=== PATIENT | male | born 1965 | race Caucasian/White ===

== ENCOUNTER 2018-09-06 21:00 | Inpatient (IN) ==
[2018-09-06] MEDS ORDERED: Succinylcholine Inj 200 MG/10 ML Vial ONE (21:14)
[2018-09-06] MEDS ORDERED: Etomidate Inj 40 MG/20 ML Vial IV.PUSH ONE (21:14)
[2018-09-06] MEDS ORDERED: Succinylcholine Inj 100 MG/5 ML Syringe IV.PUSH ONE (21:15)
[2018-09-06] MEDS ORDERED: Etomidate Inj 20 MG/10 ML Ampul IV.PUSH ONE (21:15)
[2018-09-06] MEDS ORDERED: Propofol 1000 mg/100 ml Inj 1,000 MG/100 ML BOTTLE IV.CONT PRN (21:15)
[2018-09-06] MEDS: Sod Chloride 0.9% Inj 1,000 ML IV.CONT SCH (21:19)
[2018-09-06] MEDS ORDERED: Midazolam 100 MG/100 ML Inj 100 MG/100 ML BAG IV.CONT PRN (21:26)
[2018-09-06] MEDS ORDERED: Propofol Inj 500 MG/50 ML Vial ONE (21:31)
[2018-09-06] MEDS ORDERED: Midazolam 100 MG/100 ML Inj 100 MG/100 ML BAG IV.CONT ONE (21:37)
--- NOTE | 2018-09-06 21:38 | ED ---
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 pH (7.320-7.420) ABG pCO2 (38-42) mmHg ABG pO2 (60-120) mmHg ABG HCO3 (22-26) mmol/L ABG O2 Content (12.0-20.0) Vol % ABG Base Excess (-2-2) mmol/L ABG Methemoglobin (0-2) % Husam Test Hemoglobin (12.0-16.0) G/DL Carboxyhemoglobin (0-4) % O2 Delivery Device Vent Setting Inspired O2 % Critical Value Sodium (136-145) meq/L Potassium (3.5-5.1) meq/L Chloride (98-107) meq/L Carbon Dioxide (21.0-32.0) meq/L Anion Gap (5-15) meq/L BUN (7-18) mg/dL Creatinine (0.60-1.30) mg/dL Estimated GFR (>89) mL/min POC Glucose 132 H (68-110) mg/dl Random Glucose (74-106) mg/dL Lactic Acid (0.4-2.0) mmol/L Calcium (8.5-10.1) mg/dL Magnesium (1.5-2.5) mg/dL Total Bilirubin (0.2-1.0) mg/dL AST (15-37) U/L ALT (12-78) U/L Alkaline Phosphatase (45-117) U/L Total Creatine Kinase (39-308) U/L Troponin I (0.02-0.05) ng/mL Total Protein (6.4-8.2) g/dL Albumin (3.4-5.0) g/dL Thiamine (70-180) nmol/L Vitamin B12 (193-986) pg/mL TSH (0.358-3.740) uIU/mL Free T4 (0.76-1.46) ng/dL Prolactin 18.3 H (4.0 - 15.2) ng/mL Urine Color (Yellw/Straw) Urine Clarity (Clear) Urine pH (5.0-8.5) Ur Specific [place] (1.002-1.035) Urine Protein (Neg-Trace) mg/dL Urine Glucose (UA) (Negative) mg/dL Urine Ketones (Negative) mg/dL Urine Occult Blood (Negative) Urine Nitrate (Negative) Urine Bilirubin (Negative) Urine Urobilinogen (Less than 2) mg/dL Ur Leukocyte Esterase (Negative) Urine RBC (0-3) /hpf Urine WBC (0-5) /hpf Ur Squamous Epith Cells (0-5) /hpf Hyaline Casts (0-3) /lpf Urine Mucus (Occasional) /lpf Micro UA Comment Ur Microscopic Review Urine Culture Comments Nasal Screen MRSA (PCR) Not detected (Negative) Vancomycin Trough (5.0-10.0) mcg/mL Random Vancomycin Comment Salicylates (2.8-20.0) mg/dL Urine Opiates Screen (Neg) Acetaminophen (10.0-30.0) mcg/mL Ur Barbiturates Screen (Neg) Phenytoin (10.0-20.0) mcg/mL Levetiracetam (12.0 - 46.0) mcg/mL Ur Amphetamines Screen (Neg) Phenobarbital (15.0-40.0) mcg/mL U Benzodiazepines Scrn (Neg) Urine Cocaine Screen (Neg) U Cannabinoids Screen (Neg) Serum Alcohol (0-5) mg/dL CARLOS Screen (Neg) RPR (Nonreactive) 09/08/18 09/09/18 09/09/18 Range/Units 21:34 03:05 10:17 WBC (4.0-11.0) th/mm3 RBC (4.50-5.90) mil/mm3 Hgb (13.0-17.0) gm/dL Hct (39.0-51.0) % MCV (80.0-100.0) fL MCH (27.0-34.0) pg MCHC (32.0-36.0) % RDW (11.6-17.2) % Plt Count (150-450) th/mm3 MPV (7.0-11.0) fL Neut % (Auto) (16.0-70.0) % Lymph % (Auto) (9.0-44.0) % [place] % (Auto) (0.0-8.0) % Eos % (Auto) (0.0-4.0) % Baso % (Auto) (0.0-2.0) % Neut # (Auto) (1.8-7.7) th/mm3 Lymph # (Auto) (1.0-4.8) th/mm3 [place] # (Auto) (0.0-0.9) th/mm3 Eos # (Auto) (0.0-0.4) th/mm3 Baso # (Auto) (0.0-0.2) th/mm3 WBC Differential Differential Comment PT (9.8-11.6) sec INR Ratio APTT (23.4-31.7) sec Puncture Site Patient Temperature O2 Saturation (90-100) % ABG pH (7.320-7.420) ABG pCO2 (38-42) mmHg ABG pO2 (60-120) mmHg ABG HCO3 (22-26) mmol/L ABG O2 Content (12.0-20.0) Vol % ABG Base Excess (-2-2) mmol/L ABG Methemoglobin (0-2) % Husam Test Hemoglobin (12.0-16.0) G/DL Carboxyhemoglobin (0-4) % O2 Delivery Device Vent Setting Inspired O2 % Critical Value Sodium (136-145) meq/L Potassium (3.5-5.1) meq/L Chloride (98-107) meq/L Carbon Dioxide (21.0-32.0) meq/L Anion Gap (5-15) meq/L BUN (7-18) mg/dL Creatinine 0.55 L (0.60-1.30) mg/dL Estimated GFR Greater than 89 (>89) mL/min POC Glucose 89 (68-110) mg/dl Random Glucose (74-106) mg/dL Lactic Acid (0.4-2.0) mmol/L Calcium (8.5-10.1) mg/dL Magnesium (1.5-2.5) mg/dL Total Bilirubin (0.2-1.0) mg/dL AST (15-37) U/L ALT (12-78) U/L Alkaline Phosphatase (45-117) U/L Total Creatine Kinase (39-308) U/L Troponin I (0.02-0.05) ng/mL Total Protein (6.4-8.2) g/dL Albumin (3.4-5.0) g/dL Thiamine (70-180) nmol/L Vitamin B12 (193-986) pg/mL TSH (0.358-3.740) uIU/mL Free T4 (0.76-1.46) ng/dL Prolactin (4.0 - 15.2) ng/mL Urine Color (Yellw/Straw) Urine Clarity (Clear) Urine pH (5.0-8.5) Ur Specific [place] (1.002-1.035) Urine Protein (Neg-Trace) mg/dL Urine Glucose (UA) (Negative) mg/dL Urine Ketones (Negative) mg/dL Urine Occult Blood (Negative) Urine Nitrate (Negative) Urine Bilirubin (Negative) Urine Urobilinogen (Less than 2) mg/dL Ur Leukocyte Esterase (Negative) Urine RBC (0-3) /hpf Urine WBC (0-5) /hpf Ur Squamous Epith Cells (0-5) /hpf Hyaline Casts (0-3) /lpf Urine Mucus (Occasional) /lpf Micro UA Comment Ur Microscopic Review Urine Culture Comments Nasal Screen MRSA (PCR) (Negative) Vancomycin Trough (5.0-10.0) mcg/mL Random Vancomycin Comment Salicylates (2.8-20.0) mg/dL Urine Opiates Screen (Neg) Acetaminophen (10.0-30.0) mcg/mL Ur Barbiturates Screen (Neg) Phenytoin (10.0-20.0) mcg/mL Levetiracetam (12.0 - 46.0) mcg/mL Ur Amphetamines Screen (Neg) Phenobarbital 8.7 L (15.0-40.0) mcg/mL U Benzodiazepines Scrn (Neg) Urine Cocaine Screen (Neg) U Cannabinoids Screen (Neg) Serum Alcohol (0-5) mg/dL CARLOS Screen (Neg) RPR (Nonreactive) 09/09/18 09/09/18 09/09/18 Range/Units 11:35 11:44 11:44 WBC (4.0-11.0) th/mm3 RBC (4.50-5.90) mil/mm3 Hgb (13.0-17.0) gm/dL Hct (39.0-51.0) % MCV (80.0-100.0) fL MCH (27.0-34.0) pg MCHC (32.0-36.0) % RDW (11.6-17.2) % Plt Count (150-450) th/mm3 MPV (7.0-11.0) fL Neut % (Auto) (16.0-70.0) % Lymph % (Auto) (9.0-44.0) % [place] % (Auto) (0.0-8.0) % Eos % (Auto) (0.0-4.0) % Baso % (Auto) (0.0-2.0) % Neut # (Auto) (1.8-7.7) th/mm3 Lymph # (Auto) (1.0-4.8) th/mm3 [place] # (Auto) (0.0-0.9) th/mm3 Eos # (Auto) (0.0-0.4) th/mm3 Baso # (Auto) (0.0-0.2) th/mm3 WBC Differential Differential Comment PT (9.8-11.6) sec INR Ratio APTT (23.4-31.7) sec Puncture Site Patient Temperature O2 Saturation (90-100) % ABG pH (7.320-7.420) ABG pCO2 (38-42) mmHg ABG pO2 (60-120) mmHg ABG HCO3 (22-26) mmol/L ABG O2 Content (12.0-20.0) Vol % ABG Base Excess (-2-2) mmol/L ABG Methemoglobin (0-2) % Husam Test Hemoglobin (12.0-16.0) G/DL Carboxyhemoglobin (0-4) % O2 Delivery Device Vent Setting Inspired O2 % Critical Value Sodium (136-145) meq/L Potassium (3.5-5.1) meq/L Chloride (98-107) meq/L Carbon Dioxide (21.0-32.0) meq/L Anion Gap (5-15) meq/L BUN (7-18) mg/dL Creatinine (0.60-1.30) mg/dL Estimated GFR (>89) mL/min POC Glucose 86 (68-110) mg/dl Random Glucose (74-106) mg/dL Lactic Acid (0.4-2.0) mmol/L Calcium (8.5-10.1) mg/dL Magnesium (1.5-2.5) mg/dL Total Bilirubin (0.2-1.0) mg/dL AST (15-37) U/L ALT (12-78) U/L Alkaline Phosphatase (45-117) U/L Total Creatine Kinase (39-308) U/L Troponin I (0.02-0.05) ng/mL Total Protein (6.4-8.2) g/dL Albumin (3.4-5.0) g/dL Thiamine (70-180) nmol/L Vitamin B12 360 (193-986) pg/mL TSH 2.170 (0.358-3.740) uIU/mL Free T4 0.80 (0.76-1.46) ng/dL Prolactin (4.0 - 15.2) ng/mL Urine Color (Yellw/Straw) Urine Clarity (Clear) Urine pH (5.0-8.5) Ur Specific [place] (1.002-1.035) Urine Protein (Neg-Trace) mg/dL Urine Glucose (UA) (Negative) mg/dL Urine Ketones (Negative) mg/dL Urine Occult Blood (Negative) Urine Nitrate (Negative) Urine Bilirubin (Negative) Urine Urobilinogen (Less than 2) mg/dL Ur Leukocyte Esterase (Negative) Urine RBC (0-3) /hpf Urine WBC (0-5) /hpf Ur Squamous Epith Cells (0-5) /hpf Hyaline Casts (0-3) /lpf Urine Mucus (Occasional) /lpf Micro UA Comment Ur Microscopic Review Urine Culture Comments Nasal Screen MRSA (PCR) (Negative) Vancomycin Trough (5.0-10.0) mcg/mL Random Vancomycin Comment Salicylates (2.8-20.0) mg/dL Urine Opiates Screen (Neg) Acetaminophen (10.0-30.0) mcg/mL Ur Barbiturates Screen (Neg) Phenytoin (10.0-20.0) mcg/mL Levetiracetam 24.2 (12.0 - 46.0) mcg/mL Ur Amphetamines Screen (Neg) Phenobarbital (15.0-40.0) mcg/mL U Benzodiazepines Scrn (Neg) Urine Cocaine Screen (Neg) U Cannabinoids Screen (Neg) Serum Alcohol (0-5) mg/dL CARLOS Screen (Neg) RPR (Nonreactive) 09/09/18 09/09/18 09/09/18 Range/Units 11:44 11:44 15:57 WBC (4.0-11.0) th/mm3 RBC (4.50-5.90) mil/mm3 Hgb (13.0-17.0) gm/dL Hct (39.0-51.0) % MCV (80.0-100.0) fL MCH (27.0-34.0) pg MCHC (32.0-36.0) % RDW (11.6-17.2) % Plt Count (150-450) th/mm3 MPV (7.0-11.0) fL Neut % (Auto) (16.0-70.0) % Lymph % (Auto) (9.0-44.0) % [place] % (Auto) (0.0-8.0) % Eos % (Auto) (0.0-4.0) % Baso % (Auto) (0.0-2.0) % Neut # (Auto) (1.8-7.7) th/mm3 Lymph # (Auto) (1.0-4.8) th/mm3 [place] # (Auto) (0.0-0.9) th/mm3 Eos # (Auto) (0.0-0.4) th/mm3 Baso # (Auto) (0.0-0.2) th/mm3 WBC Differential Differential Comment PT (9.8-11.6) sec INR Ratio APTT (23.4-31.7) sec Puncture Site Patient Temperature O2 Saturation (90-100) % ABG pH (7.320-7.420) ABG pCO2 (38-42) mmHg ABG pO2 (60-120) mmHg ABG HCO3 (22-26) mmol/L ABG O2 Content (12.0-20.0) Vol % ABG Base Excess (-2-2) mmol/L ABG Methemoglobin (0-2) % Husam Test Hemoglobin (12.0-16.0) G/DL Carboxyhemoglobin (0-4) % O2 Delivery Device Vent Setting Inspired O2 % Critical Value Sodium (136-145) meq/L Potassium (3.5-5.1) meq/L Chloride (98-107) meq/L Carbon Dioxide (21.0-32.0) meq/L Anion Gap (5-15) meq/L BUN (7-18) mg/dL Creatinine (0.60-1.30) mg/dL Estimated GFR (>89) mL/min POC Glucose (68-110) mg/dl Random Glucose (74-106) mg/dL Lactic Acid (0.4-2.0) mmol/L Calcium (8.5-10.1) mg/dL Magnesium (1.5-2.5) mg/dL Total Bilirubin (0.2-1.0) mg/dL AST (15-37) U/L ALT (12-78) U/L Alkaline Phosphatase (45-117) U/L Total Creatine Kinase (39-308) U/L Troponin I (0.02-0.05) ng/mL Total Protein (6.4-8.2) g/dL Albumin (3.4-5.0) g/dL Thiamine 136 (70-180) nmol/L Vitamin B12 (193-986) pg/mL TSH (0.358-3.740) uIU/mL Free T4 (0.76-1.46) ng/dL Prolactin (4.0 - 15.2) ng/mL Urine Color (Yellw/Straw) Urine Clarity (Clear) Urine pH (5.0-8.5) Ur Specific [place] (1.002-1.035) Urine Protein (Neg-Trace) mg/dL Urine Glucose (UA) (Negative) mg/dL Urine Ketones (Negative) mg/dL Urine Occult Blood (Negative) Urine Nitrate (Negative) Urine Bilirubin (Negative) Urine Urobilinogen (Less than 2) mg/dL Ur Leukocyte Esterase (Negative) Urine RBC (0-3) /hpf Urine WBC (0-5) /hpf Ur Squamous Epith Cells (0-5) /hpf Hyaline Casts (0-3) /lpf Urine Mucus (Occasional) /lpf Micro UA Comment Ur Microscopic Review Urine Culture Comments Nasal Screen MRSA (PCR) (Negative) Vancomycin Trough 8.5 (5.0-10.0) mcg/mL Random Vancomycin Comment Salicylates (2.8-20.0) mg/dL Urine Opiates Screen (Neg) Acetaminophen (10.0-30.0) mcg/mL Ur Barbiturates Screen (Neg) Phenytoin (10.0-20.0) mcg/mL Levetiracetam (12.0 - 46.0) mcg/mL Ur Amphetamines Screen (Neg) Phenobarbital (15.0-40.0) mcg/mL U Benzodiazepines Scrn (Neg) Urine Cocaine Screen (Neg) U Cannabinoids Screen (Neg) Serum Alcohol (0-5) mg/dL CARLOS Screen Neg (Neg) RPR Nonreactive (Nonreactive) 09/09/18 09/09/18 09/10/18 Range/Units 19:54 21:49 07:12 WBC (4.0-11.0) th/mm3 RBC (4.50-5.90) mil/mm3 Hgb (13.0-17.0) gm/dL Hct (39.0-51.0) % MCV (80.0-100.0) fL MCH (27.0-34.0) pg MCHC (32.0-36.0) % RDW (11.6-17.2) % Plt Count (150-450) th/mm3 MPV (7.0-11.0) fL Neut % (Auto) (16.0-70.0) % Lymph % (Auto) (9.0-44.0) % [place] % (Auto) (0.0-8.0) % Eos % (Auto) (0.0-4.0) % Baso % (Auto) (0.0-2.0) % Neut # (Auto) (1.8-7.7) th/mm3 Lymph # (Auto) (1.0-4.8) th/mm3 [place] # (Auto) (0.0-0.9) th/mm3 Eos # (Auto) (0.0-0.4) th/mm3 Baso # (Auto) (0.0-0.2) th/mm3 WBC Differential Differential Comment PT (9.8-11.6) sec INR Ratio APTT (23.4-31.7) sec Puncture Site Patient Temperature O2 Saturation (90-100) % ABG pH (7.320-7.420) ABG pCO2 (38-42) mmHg ABG pO2 (60-120) mmHg ABG HCO3 (22-26) mmol/L ABG O2 Content (12.0-20.0) Vol % ABG Base Excess (-2-2) mmol/L ABG Methemoglobin (0-2) % Husam Test Hemoglobin (12.0-16.0) G/DL Carboxyhemoglobin (0-4) % O2 Delivery Device Vent Setting Inspired O2 % Critical Value Sodium (136-145) meq/L Potassium (3.5-5.1) meq/L Chloride (98-107) meq/L Carbon Dioxide (21.0-32.0) meq/L Anion Gap (5-15) meq/L BUN (7-18) mg/dL Creatinine (0.60-1.30) mg/dL Estimated GFR (>89) mL/min POC Glucose 89 107 85 (68-110) mg/dl Random Glucose (74-106) mg/dL Lactic Acid (0.4-2.0) mmol/L Calcium (8.5-10.1) mg/dL Magnesium (1.5-2.5) mg/dL Total Bilirubin (0.2-1.0) mg/dL AST (15-37) U/L ALT (12-78) U/L Alkaline Phosphatase (45-117) U/L Total Creatine Kinase (39-308) U/L Troponin I (0.02-0.05) ng/mL Total Protein (6.4-8.2) g/dL Albumin (3.4-5.0) g/dL Thiamine (70-180) nmol/L Vitamin B12 (193-986) pg/mL TSH (0.358-3.740) uIU/mL Free T4 (0.76-1.46) ng/dL Prolactin (4.0 - 15.2) ng/mL Urine Color (Yellw/Straw) Urine Clarity (Clear) Urine pH (5.0-8.5) Ur Specific [place] (1.002-1.035) Urine Protein (Neg-Trace) mg/dL Urine Glucose (UA) (Negative) mg/dL Urine Ketones (Negative) mg/dL Urine Occult Blood (Negative) Urine Nitrate (Negative) Urine Bilirubin (Negative) Urine Urobilinogen (Less than 2) mg/dL Ur Leukocyte Esterase (Negative) Urine RBC (0-3) /hpf Urine WBC (0-5) /hpf Ur Squamous Epith Cells (0-5) /hpf Hyaline Casts (0-3) /lpf Urine Mucus (Occasional) /lpf Micro UA Comment Ur Microscopic Review Urine Culture Comments Nasal Screen MRSA (PCR) (Negative) Vancomycin Trough (5.0-10.0) mcg/mL Random Vancomycin Comment Salicylates (2.8-20.0) mg/dL Urine Opiates Screen (Neg) Acetaminophen (10.0-30.0) mcg/mL Ur Barbiturates Screen (Neg) Phenytoin (10.0-20.0) mcg/mL Levetiracetam (12.0 - 46.0) mcg/mL Ur Amphetamines Screen (Neg) Phenobarbital (15.0-40.0) mcg/mL U Benzodiazepines Scrn (Neg) Urine Cocaine Screen (Neg) U Cannabinoids Screen (Neg) Serum Alcohol (0-5) mg/dL CARLOS Screen (Neg) RPR (Nonreactive) 09/10/18 09/11/18 09/11/18 Range/Units 15:45 05:04 15:10 WBC (4.0-11.0) th/mm3 RBC (4.50-5.90) mil/mm3 Hgb (13.0-17.0) gm/dL Hct (39.0-51.0) % MCV (80.0-100.0) fL MCH (27.0-34.0) pg MCHC (32.0-36.0) % RDW (11.6-17.2) % Plt Count (150-450) th/mm3 MPV (7.0-11.0) fL Neut % (Auto) (16.0-70.0) % Lymph % (Auto) (9.0-44.0) % [place] % (Auto) (0.0-8.0) % Eos % (Auto) (0.0-4.0) % Baso % (Auto) (0.0-2.0) % Neut # (Auto) (1.8-7.7) th/mm3 Lymph # (Auto) (1.0-4.8) th/mm3 [place] # (Auto) (0.0-0.9) th/mm3 Eos # (Auto) (0.0-0.4) th/mm3 Baso # (Auto) (0.0-0.2) th/mm3 WBC Differential Differential Comment PT (9.8-11.6) sec INR Ratio APTT (23.4-31.7) sec Puncture Site Patient Temperature O2 Saturation (90-100) % ABG pH (7.320-7.420) ABG pCO2 (38-42) mmHg ABG pO2 (60-120) mmHg ABG HCO3 (22-26) mmol/L ABG O2 Content (12.0-20.0) Vol % ABG Base Excess (-2-2) mmol/L ABG Methemoglobin (0-2) % Husam Test Hemoglobin (12.0-16.0) G/DL Carboxyhemoglobin (0-4) % O2 Delivery Device Vent Setting Inspired O2 % Critical Value Sodium (136-145) meq/L Potassium (3.5-5.1) meq/L Chloride (98-107) meq/L Carbon Dioxide (21.0-32.0) meq/L Anion Gap (5-15) meq/L BUN (7-18) mg/dL Creatinine 0.67 (0.60-1.30) mg/dL Estimated GFR Greater than 89 (>89) mL/min POC Glucose (68-110) mg/dl Random Glucose (74-106) mg/dL Lactic Acid (0.4-2.0) mmol/L Calcium (8.5-10.1) mg/dL Magnesium (1.5-2.5) mg/dL Total Bilirubin (0.2-1.0) mg/dL AST (15-37) U/L ALT (12-78) U/L Alkaline Phosphatase (45-117) U/L Total Creatine Kinase (39-308) U/L Troponin I (0.02-0.05) ng/mL Total Protein (6.4-8.2) g/dL Albumin (3.4-5.0) g/dL Thiamine (70-180) nmol/L Vitamin B12 (193-986) pg/mL TSH (0.358-3.740) uIU/mL Free T4 (0.76-1.46) ng/dL Prolactin (4.0 - 15.2) ng/mL Urine Color (Yellw/Straw) Urine Clarity (Clear) Urine pH (5.0-8.5) Ur Specific [place] (1.002-1.035) Urine Protein (Neg-Trace) mg/dL Urine Glucose (UA) (Negative) mg/dL Urine Ketones (Negative) mg/dL Urine Occult Blood (Negative) Urine Nitrate (Negative) Urine Bilirubin (Negative) Urine Urobilinogen (Less than 2) mg/dL Ur Leukocyte Esterase (Negative) Urine RBC (0-3) /hpf Urine WBC (0-5) /hpf Ur Squamous Epith Cells (0-5) /hpf Hyaline Casts (0-3) /lpf Urine Mucus (Occasional) /lpf Micro UA Comment Ur Microscopic Review Urine Culture Comments Nasal Screen MRSA (PCR) (Negative) Vancomycin Trough 14.8 H 33.8 H (5.0-10.0) mcg/mL Random Vancomycin Comment Salicylates (2.8-20.0) mg/dL Urine Opiates Screen (Neg) Acetaminophen (10.0-30.0) mcg/mL Ur Barbiturates Screen (Neg) Phenytoin (10.0-20.0) mcg/mL Levetiracetam (12.0 - 46.0) mcg/mL Ur Amphetamines Screen (Neg) Phenobarbital (15.0-40.0) mcg/mL U Benzodiazepines Scrn (Neg) Urine Cocaine Screen (Neg) U Cannabinoids Screen (Neg) Serum Alcohol (0-5) mg/dL CARLOS Screen (Neg) RPR (Nonreactive) 09/12/18 Range/Units 06:36 WBC (4.0-11.0) th/mm3 RBC (4.50-5.90) mil/mm3 Hgb (13.0-17.0) gm/dL Hct (39.0-51.0) % MCV (80.0-100.0) fL MCH (27.0-34.0) pg MCHC (32.0-36.0) % RDW (11.6-17.2) % Plt Count (150-450) th/mm3 MPV (7.0-11.0) fL Neut % (Auto) (16.0-70.0) % Lymph % (Auto) (9.0-44.0) % [place] % (Auto) (0.0-8.0) % Eos % (Auto) (0.0-4.0) % Baso % (Auto) (0.0-2.0) % Neut # (Auto) (1.8-7.7) th/mm3 Lymph # (Auto) (1.0-4.8) th/mm3 [place] # (Auto) (0.0-0.9) th/mm3 Eos # (Auto) (0.0-0.4) th/mm3 Baso # (Auto) (0.0-0.2) th/mm3 WBC Differential Differential Comment PT (9.8-11.6) sec INR Ratio APTT (23.4-31.7) sec Puncture Site Patient Temperature O2 Saturation (90-100) % ABG pH (7.320-7.420) ABG pCO2 (38-42) mmHg ABG pO2 (60-120) mmHg ABG HCO3 (22-26) mmol/L ABG O2 Content (12.0-20.0) Vol % ABG Base Excess (-2-2) mmol/L ABG Methemoglobin (0-2) % Husam Test Hemoglobin (12.0-16.0) G/DL Carboxyhemoglobin (0-4) % O2 Delivery Device Vent Setting Inspired O2 % Critical Value Sodium (136-145) meq/L Potassium (3.5-5.1) meq/L Chloride (98-107) meq/L Carbon Dioxide (21.0-32.0) meq/L Anion Gap (5-15) meq/L BUN (7-18) mg/dL Creatinine (0.60-1.30) mg/dL Estimated GFR (>89) mL/min POC Glucose (68-110) mg/dl Random Glucose (74-106) mg/dL Lactic Acid (0.4-2.0) mmol/L Calcium (8.5-10.1) mg/dL Magnesium (1.5-2.5) mg/dL Total Bilirubin (0.2-1.0) mg/dL AST (15-37) U/L ALT (12-78) U/L Alkaline Phosphatase (45-117) U/L Total Creatine Kinase (39-308) U/L Troponin I (0.02-0.05) ng/mL Total Protein (6.4-8.2) g/dL Albumin (3.4-5.0) g/dL Thiamine (70-180) nmol/L Vitamin B12 (193-986) pg/mL TSH (0.358-3.740) uIU/mL Free T4 (0.76-1.46) ng/dL Prolactin (4.0 - 15.2) ng/mL Urine Color (Yellw/Straw) Urine Clarity (Clear) Urine pH (5.0-8.5) Ur Specific [place] (1.002-1.035) Urine Protein (Neg-Trace) mg/dL Urine Glucose (UA) (Negative) mg/dL Urine Ketones (Negative) mg/dL Urine Occult Blood (Negative) Urine Nitrate (Negative) Urine Bilirubin (Negative) Urine Urobilinogen (Less than 2) mg/dL Ur Leukocyte Esterase (Negative) Urine RBC (0-3) /hpf Urine WBC (0-5) /hpf Ur Squamous Epith Cells (0-5) /hpf Hyaline Casts (0-3) /lpf Urine Mucus (Occasional) /lpf Micro UA Comment Ur Microscopic Review Urine Culture Comments Nasal Screen MRSA (PCR) (Negative) Vancomycin Trough (5.0-10.0) mcg/mL Random Vancomycin 9.4 Comment Salicylates (2.8-20.0) mg/dL Urine Opiates Screen (Neg) Acetaminophen (10.0-30.0) mcg/mL Ur Barbiturates Screen (Neg) Phenytoin (10.0-20.0) mcg/mL Levetiracetam (12.0 - 46.0) mcg/mL Ur Amphetamines Screen (Neg) Phenobarbital (15.0-40.0) mcg/mL U Benzodiazepines Scrn (Neg) Urine Cocaine Screen (Neg) U Cannabinoids Screen (Neg) Serum Alcohol (0-5) mg/dL CARLOS Screen (Neg) RPR (Nonreactive) Imaging Data Radiologist's impression: Chest X-Ray 09/06/18 21:22 The heart and pulmonary vascularity are normal. The portion of the bony skeleton visualized is unremarkable. CONCLUSION: Support apparatus in good position. Lungs are clear. Elbow X-Ray 09/07/18 03:19 CONCLUSION: No acute findings. Finger X-Ray 09/07/18 03:19 CONCLUSION: No acute bony abnormality. Cervical Spine CT 09/07/18 21:22 CONCLUSION: 1. No acute findings. Moderate degenerative change at C5-6. Head CT 09/07/18 21:22 CONCLUSION: 1. Negative CT Head non contrast. . Abdomen/Pelvis CT 09/07/18 23:23 CONCLUSION: 1. No acute findings on abdomen and pelvic CT. Chest CT 09/07/18 23:23 CONCLUSION: 1. Nondisplaced fractures of left anterior eighth, ninth and 10th ribs. No pneumothorax. Mild basilar atelectasis in the lungs. Cervical Spine MRI 09/09/18 10:09 CONCLUSION: 1. At C5-6 there is mild AP canal and foraminal stenosis with mild impression on the anterior surface of the cord. 2. At C6-7 is a broad-based posterior disc protrusion with mild AP canal stenosis and mild flattening. 3. Normal alignment without fracture or spondylolisthesis. No cord signal abnormality. Head MRI 09/09/18 10:09 CONCLUSION: 1. No acute findings. No recent infarct identified. ECG Data Attestation: I personally reviewed and interpreted this ECG as follows: Interpretation: The patient had an EKG done on arrival. The patient's EKG reveals a sinus rhythm heart rate of [address] segment elevation. T waves are inverted in aVL. Discharge Plan Discharge Disposition Patient Disposition: 30 Still Patient Discharge Details Diagnosis: Respiratory failure, Seizure, Multiple fractures of ribs Physicians Team ED Provider: Elayne Hull Primary Care Provider: UNKNOWN, Attending Provider: Ori Vargas Other Providers: Jessie Haines ; Enrique Blackmon Discharge Interventions Interventions: ED Discharge Assessment Last Done: 09/07/18 16:16 Status ED Status: Left Department Discharge Information Discharge Date/Time: 09/07/18 16:17
--- NOTE | 2018-09-06 22:04 | XR ---
EXAM DATE: 09/06/2018 9:57 PM EST AGE/SEX: 89 years / Male INDICATIONS: Endotracheal tube placement. CLINICAL DATA: This is the patient's initial encounter. Patient reports that signs and symptoms have been present for 1 day and indicates a pain score of Nonresponsive. MEDICAL/SURGICAL HISTORY: Non-responsive. Non-responsive. COMPARISON: No prior exams available for comparison. FINDINGS: ET tube and nasogastric tube in good position. The lungs are clear. The heart and pulmonary vascularity are normal. The portion of the bony skeleton visualized is unrema rkable. CONCLUSION: Support apparatus in good position. Lungs are clear. Electronically signed by: Mikel Albert MD 09/06/2018 10:03 PM EST
[2018-09-06] MEDS: Sod Chloride 0.9% Inj 1,000 ML IV.SIG SCH ×2 (22:15→22:46)
[2018-09-06 22:57] LABS: Baso % (Auto) 0.5 % (0.0-2.0); Hematocrit 40.5 % (39.0-51.0); Hemoglobin 14.1 gm/dL (13.0-17.0); Lymph # (Auto) 3.6 th/mm3 (1.0-4.8); Mean Corpuscular HGB Conc 34.8 % (32.0-36.0); Mean Corpuscular Hemoglobin 32.6 pg (27.0-34.0); Mean Corpuscular Volume 93.5 fL (80.0-100.0); Mean Platelet Volume 7.9 fL (7.0-11.0); Mono # (Auto) 0.8 th/mm3 (0.0-0.9); Neut # (Auto) 2.6 th/mm3 (1.8-7.7); Neut % (Auto) 36.5 % (16.0-70.0); Platelet Count 262 th/mm3 (150-450); Red Blood Count 4.33 mil/mm3 (4.50-5.90); Red Cell Distribution Width 15.3 % (11.6-17.2)
[2018-09-06 22:58] LABS: Bilirubin,Urine Negative (Negative); Clarity,Urine Clear (Clear); Color,Urine Straw (Yellw/Straw); Glucose,Urine (UA) Negative (Negative); Leukocyte Esterase,Urine Negative (Negative); Mucus,Urine Few /lpf (Occasional); Nitrite,Urine Negative (Negative); Specific Gravity,Urine 1.006 (1.002-1.035); Squamous Epithelial Cell,Urine <1 /hpf (0-5)
[2018-09-06 22:59] LABS: Activated Partial Thrombo Time 27.8 sec (23.4-31.7); Prothrombin Time 9.8 sec (9.8-11.6)
[2018-09-06 23:03] LABS: Amphetamine Screen,Urine Neg (Neg); Barbiturate Screen,Urine Pos (Neg); Cannabinoid Screen,Urine Neg (Neg); Cocaine Screen,Urine Neg (Neg)
[2018-09-06 23:08] LABS: Opiate Screen,Urine Neg (Neg)
[2018-09-06 23:17] LABS: Alanine Aminotransferase 24 U/L (12-78); Alkaline Phosphatase 109 U/L (45-117); Creatine Kinase 164 U/L (39-308); Phenytoin (Dilantin) 0.5 mcg/mL (10.0-20.0); Total Protein 7.5 g/dL (6.4-8.2)
[2018-09-06 23:21] LABS: Albumin 3.4 g/dL (3.4-5.0); Alcohol 318 mg/dL (0-5); Anion Gap 7 meq/L (5-15); Aspartate Aminotransferase 25 U/L (15-37); Blood Urea Nitrogen 5 mg/dL (7-18); Calcium 7.6 mg/dL (8.5-10.1); Carbon Dioxide 25.5 meq/L (21.0-32.0); Chloride 110 meq/L (98-107); Glomerular Filtration Rate Greater Than 89 mL/min (>89); Glucose,Random 86 mg/dL (74-106); Magnesium 1.9 mg/dL (1.5-2.5); Potassium 4.3 meq/L (3.5-5.1); Sodium 142 meq/L (136-145)
[2018-09-07] MEDS ORDERED: Fosphenytoin Inj 1,000 MGPE in Sodium Chlor 0.9% Inj 50 ML IV.SIG ONE (00:31)
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
[2018-09-07] MEDS ORDERED: Piperacil/Tazo 3.375 GM Premix 50 ML IV.SIG ONE (03:12)
[2018-09-07] MEDS ORDERED: Vancomycin Inj 1,000 MG in Sodium Chlor 0.9% Inj 250 ML IV.SIG ONE (03:12)
[2018-09-07] MEDS ORDERED: Diphtheria/Tetanus/Pertussis Vaccine Inj 0.5 ML Syringe IM ONE (03:20)
[2018-09-07 04:06] LABS: Bilirubin,Urine Negative (Negative); Clarity,Urine Clear (Clear); Color,Urine Yellow (Yellw/Straw); Glucose,Urine (UA) Negative (Negative); Hyaline Casts,Urine 1 /lpf (0-3); Leukocyte Esterase,Urine Negative (Negative); Mucus,Urine Few /lpf (Occasional); Nitrite,Urine Negative (Negative); Specific Gravity,Urine 1.028 (1.002-1.035)
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
[2018-09-07] MEDS ORDERED: Haloperidol Inj 5 MG/ML Ampul IV.PUSH PRN (05:05)
[2018-09-07] MEDS ORDERED: Sod Chloride 0.9% Inj 1,000 ML IV.SIG SCH (05:15)
[2018-09-07] MEDS: Sod Chloride 0.9% Inj 1,000 ML IV.CONT SCH ×4 (07:18→23:58)
[2018-09-07] MEDS: Multivitamin/Minerals Therapeutic Tablet PO SCH (09:27)
[2018-09-07] MEDS: Folic Acid 1 MG Tablet PO SCH (09:27)
[2018-09-07 13:00] LABS: Baso % (Auto) 0.4 % (0.0-2.0); Hematocrit 38.4 % (39.0-51.0); Hemoglobin 13.2 gm/dL (13.0-17.0); Lymph # (Auto) 1.8 th/mm3 (1.0-4.8); Lymph % (Auto) 26.4 % (9.0-44.0); Mean Corpuscular HGB Conc 34.4 % (32.0-36.0); Mean Corpuscular Hemoglobin 33.4 pg (27.0-34.0); Mean Corpuscular Volume 96.9 fL (80.0-100.0); Mean Platelet Volume 7.9 fL (7.0-11.0); Mono # (Auto) 0.7 th/mm3 (0.0-0.9); Mono % (Auto) 9.8 % (0.0-8.0); Neut # (Auto) 4.3 th/mm3 (1.8-7.7); Neut % (Auto) 63.4 % (16.0-70.0); Platelet Count 212 th/mm3 (150-450); Red Blood Count 3.96 mil/mm3 (4.50-5.90); Red Cell Distribution Width 15.7 % (11.6-17.2); White Blood Count 6.8 th/mm3 (4.0-11.0)
[2018-09-07 13:25] LABS: Alanine Aminotransferase 21 U/L (12-78); Albumin 3.1 g/dL (3.4-5.0); Anion Gap 5 meq/L (5-15); Aspartate Aminotransferase 19 U/L (15-37); Blood Urea Nitrogen 8 mg/dL (7-18); Calcium 7.9 mg/dL (8.5-10.1); Carbon Dioxide 28.7 meq/L (21.0-32.0); Chloride 105 meq/L (98-107); Glomerular Filtration Rate Greater Than 89 mL/min (>89); Glucose,Random 82 mg/dL (74-106); Potassium 3.8 meq/L (3.5-5.1); Sodium 139 meq/L (136-145)
[2018-09-07 13:27] LABS: Alkaline Phosphatase 104 U/L (45-117); Total Protein 6.6 g/dL (6.4-8.2)
[2018-09-07] MEDS: levETIRAcetam 1000mg/100mL Inj 100 ML IV.SIG SCH (14:57)
--- NOTE | 2018-09-07 15:39 | ECG ---
Date Performed: 09/06/2018 Time Performed: 21:43:31 PTAGE: 89 years EKG: Sinus rhythm NORMAL ECG NO PREVIOUS TRACING DOCTOR: Gamal Mir Interpretating Date/Time 09/07/2018 15:37:16
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
[2018-09-07] MEDS: Lidocaine 5% Patch T-DERMAL SCH (21:21)
[2018-09-07] MEDS ORDERED: Vancomycin Consult Pharmacy OTHER PRN (23:22)
[2018-09-08] MEDS ORDERED: Vancomycin Inj 1,750 MG in Sodium Chlor 0.9% Inj 500 ML IV.SIG ONE ×2
[2018-09-08] MEDS: levETIRAcetam 1000mg/100mL Inj 100 ML IV.SIG SCH (03:00)
[2018-09-08] MEDS ORDERED: levETIRAcetam 500 MG Tablet PO SCH (09:00)
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
[2018-09-08] MEDS: Lidocaine 5% Patch T-DERMAL SCH (09:30)
[2018-09-08] MEDS: Multivitamin/Minerals Therapeutic Tablet PO SCH (09:30)
[2018-09-08] MEDS: Folic Acid 1 MG Tablet PO SCH (09:30)
[2018-09-08 14:49] LABS: ABG Base Excess -3.9 mmol/L (-2-2); ABG PCO2 36 mmHg (38-42); ABG PO2 211 mmHg (60-120)
[2018-09-08] MEDS: Sod Chloride 0.9% Inj 1,000 ML IV.CONT SCH ×5 (15:26→21:44)
[2018-09-08] MEDS: Vancomycin Inj 1,250 MG in Sodium Chlor 0.9% Inj 250 ML IV.SIG SCH (15:27)
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
[2018-09-08] MEDS ORDERED: levETIRAcetam 250 MG Tablet PO SCH (19:30)
[2018-09-08] MEDS ORDERED: levETIRAcetam 1000mg/100mL Inj 100 ML IV.SIG SCH (20:00)
[2018-09-08] MEDS: levETIRAcetam 500 MG Tablet PO SCH (21:33)
[2018-09-09] MEDS: Vancomycin Inj 1,250 MG in Sodium Chlor 0.9% Inj 250 ML IV.SIG SCH ×2 (01:38→16:00)
[2018-09-09] MEDS: Chlorhexidine Gluconate 2% 1 Pack (2 Cloths) TOPICAL SCH (03:41)
[2018-09-09] MEDS ORDERED: Chlorhexidine Gluconate 2% 1 Pack (2 Cloths) TOPICAL PRN (04:00)
[2018-09-09 04:14] LABS: Glomerular Filtration Rate Greater Than 89 mL/min (>89)
[2018-09-09] MEDS: Sod Chloride 0.9% Inj 1,000 ML IV.CONT SCH ×5 (05:30→22:28)
[2018-09-09] MEDS: levETIRAcetam 500 MG Tablet PO SCH ×3 (08:25→19:59)
[2018-09-09] MEDS: Folic Acid 1 MG Tablet PO SCH (08:25)
[2018-09-09] MEDS: LORazepam 1 MG Tablet PO PRN ×2 (08:25→20:04)
[2018-09-09] MEDS: Multivitamin/Minerals Therapeutic Tablet PO SCH (08:25)
[2018-09-09] MEDS: Lidocaine 5% Patch T-DERMAL SCH (08:27)
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
[2018-09-09 12:51] LABS: Free T4 (Free Thyroxine) 0.8 ng/dL (0.76-1.46); Thyroid Stimulating Hormone 2.17 uIU/mL (0.358-3.740)
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
[2018-09-09] MEDS ORDERED: Pharmacy Ordered Lab Info OTHER ONE (13:45)
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
[2018-09-09] MEDS ORDERED: Gadobutrol PF 7.5 MMOL/7.5 ML Vial (for RAD) IV.SIG ONE (21:27)
--- NOTE | 2018-09-09 21:34 | MR ---
EXAM DATE: 09/09/2018 9:26 PM EST AGE/SEX: 52 years / Male INDICATIONS: Myelopathy. Neck pain due to fall. CLINICAL DATA: This is the patient's initial encounter. Patient reports that signs and symptoms have been present for 2 days and indicates a pain score of 6/10. MEDICAL/SURGICAL HISTORY: Carcinoma, colon. Rib fracture. . Finger sx. COMPARISON: No prior exams available for comparison. TECHNIQUE: Multiplanar, multisequence MRI examination of the cervical spine was performed without co ntrast. FINDINGS: At C2-3-4-5 there is no significant abnormality. At C5-6 there is posterior osteophytic ridging with mild AP canal stenosis and mild foraminal stenosi s. Minimal impression on the anterior surface of the cord. At C6-7 there is a broad-based posterior disc protrusion with mild AP canal stenosis and mild flatten ing of the cord. Mild bilateral foraminal stenosis. At C7-T1 there is no significant abnormality. CONCLUSION: 1. At C5-6 there is mild AP canal and foraminal stenosis with mild impression on the anterior surfac e of the cord. 2. At C6-7 is a broad-based posterior disc protrusion with mild AP canal stenosis and mild flattenin g. 3. Normal alignment without fracture or spondylolisthesis. No cord signal abnormality. Electronically signed by: Gab Estevez MD 09/09/2018 9:32 PM EST
--- NOTE | 2018-09-09 21:38 | MR ---
EXAM DATE: 09/09/2018 9:29 PM EST AGE/SEX: 52 years / Male INDICATIONS: CVA. CLINICAL DATA: This is the patient's initial encounter. Patient reports that signs and symptoms have been present for 2 days and indicates a pain score of 7/10. MEDICAL/SURGICAL HISTORY: Seizures. Carcinoma, colon. Rib fractures. . Finger sx, COMPARISON: No prior exams available for comparison. TECHNIQUE: Multiplanar, multisequence examination of the brain was performed without and with 7 ml Ga davist (gadobutrol) contrast as a single exam dose. FINDINGS: No mass effect or midline shift. No hydrocephalus. No recent infarct is identified on the diffusion w eighted images. No significant white matter disease. No abnormal enhancing lesions are identified pos tcontrast. CONCLUSION: 1. No acute findings. No recent infarct identified. Electronically signed by: Gab Estevez MD 09/09/2018 9:37 PM EST
[2018-09-10] MEDS: Vancomycin Inj 1,000 MG in Sodium Chlor 0.9% Inj 250 ML IV.SIG SCH ×3 (00:14→15:30)
[2018-09-10] MEDS: Sod Chloride 0.9% Inj 1,000 ML IV.CONT SCH ×5 (04:45→23:09)
[2018-09-10] MEDS: Chlorhexidine Gluconate 2% 1 Pack (2 Cloths) TOPICAL SCH (04:45)
--- NOTE | 2018-09-10 07:24 | P.PNNEU ---
Subjective Active Medications: Active Medications Hydrocodone Bitart/Acetaminophen ([place] 7.5/325) 1 tab PO Q6H PRN PRN Reason: pain 2-10 Last Admin: 09/10/18 00:14 Dose: 1 tab Chlordiazepoxide (Librium) 10 mg PO Q8H PRN PRN Reason: WITHDRAWAL Last Admin: 09/08/18 15:25 Dose: 10 mg Chlorhexidine Gluconate (Chlorhexidine 2% Cloth) 3 pack TOPICAL DAILY@0400 [facility] Stop: 09/14/18 03:59 Last Admin: 09/10/18 04:45 Dose: Not Given Chlorhexidine Gluconate (Chlorhexidine 2% Cloth) 3 pack TOPICAL DAILY@0400 PRN PRN Reason: Extra cloth needed Stop: 09/14/18 03:59 Flumazenil (Romazecon Inj) 0.2 mg IV.PUSH Q1M PRN PRN Reason: OVERSEDATION Folic Acid (Folic Acid) 1 mg PO DAILY [facility] Stop: 09/12/18 08:59 Last Admin: 09/09/18 08:25 Dose: 1 mg Haloperidol Lactate (Haldol Inj) 1 mg IV.PUSH Q15M PRN PRN Reason: for severe agitation Sodium Chloride (Ns Inj) 1,000 mls @ 125 mls/hr IV.CONT .Q8H [facility] Last Admin: 09/10/18 06:30 Dose: Not Given Sodium Chloride (Ns Inj) 1,000 mls @ 84 mls/hr IV.CONT .[id number] [facility] Last Admin: 09/10/18 04:45 Dose: Not Given Vancomycin HCl 1,000 mg/ (Sodium Chloride) 250 mls @ 250 mls/hr IV.SIG Q8H [facility] Last Infusion: 09/10/18 01:15 Dose: Infused Levetiracetam (Keppra) 1,500 mg PO BID [facility] Last Admin: 09/09/18 19:59 Dose: 1,500 mg Lidocaine HCl (Lidoderm 5% Patch.12 Hr) 1 patch T-DERMAL DAILY [facility] Last Admin: 09/09/18 08:27 Dose: 1 patch Lorazepam (Ativan) 1 mg PO Q4H PRN PRN Reason: for CIWA 8-10 Last Admin: 09/09/18 20:04 Dose: 1 mg Lorazepam (Ativan) 2 mg PO Q2H PRN PRN Reason: for CIWA 11-14 Last Admin: 09/09/18 21:45 Dose: 2 mg Lorazepam (Ativan Inj) 2 mg IV.PUSH Q2H PRN PRN Reason: for CIWA 11-14 Last Admin: 09/07/18 21:35 Dose: 2 mg Lorazepam (Ativan Inj) 2 mg IV.PUSH Q1H PRN PRN Reason: for CIWA 15-20 Last Admin: 09/07/18 09:32 Dose: 2 mg Lorazepam (Ativan Inj) 2 mg IV.PUSH Q15M PRN PRN Reason: for CIWA > 20 Last Admin: 09/08/18 18:40 Dose: 2 mg Lorazepam (Ativan Inj) 1 mg IV.PUSH Q4H PRN PRN Reason: for CIWA 8-10 Miscellaneous Information ([facility] Ordered Lab Info) 0 each OTHER ONCE ONE Stop: 09/10/18 15:46 Multivitamins/Minerals (Theragran-M) 1 tab PO DAILY [facility] Stop: 09/12/18 08:59 Last Admin: 09/09/18 08:25 Dose: 1 tab Neomycin/Polymyxin/Bacitracin (Neosporin Oint) 1 applicatio TOPICAL BID [facility] Last Admin: 09/09/18 20:00 Dose: 1 applicatio Nicotine (Habitrol 21 Mg Patch.24 Hr) 1 patch T-DERMAL DAILY [facility] Last Admin: 09/09/18 08:26 Dose: 1 patch Ondansetron HCl (Zofran Inj) 4 mg IV.PUSH Q6H PRN PRN Reason: NAUSEA OR VOMITING Last Admin: 09/07/18 16:06 Dose: 4 mg Patch Removal (Remove Old Patch) 1 each T-DERMAL HS [facility] Last Admin: 09/09/18 20:00 Dose: 1 each Pharmacy Profile Note (Vancomycin Consult Pharmacy) 1 each OTHER UNSCH PRN PRN Reason: Pharmacy to dose Phenobarbital (Phenobarbital) 97.2 mg PO DAILY [facility] Last Admin: 09/09/18 09:49 Dose: Not Given Thiamine HCl (Vitamin B1) 100 mg PO DAILY [facility] Last Admin: 09/09/18 08:25 Dose: 100 mg Allergies/Adverse Reactions: Allergies Allergy/AdvReac Type Severity Reaction Status Date / Time azithromycin Allergy Rash Unverified 09/08/18 21:26 cephalexin [From Keflex] Allergy Itching Unverified 09/08/18 21:26 Penicillins Allergy Itching Unverified 09/08/18 21:26 Physical Exam Vital signs: Vital Signs 09/09/18 08:00 09/09/18 09:00 09/09/18 10:00 Temperature Pulse Rate 61 61 61 Respiratory Rate 16 16 16 Blood Pressure 153/91 H 154/97 H 165/107 H Pulse Oximetry 100 100 100 09/09/18 11:00 09/09/18 12:00 09/09/18 13:00 Temperature Pulse Rate 60 60 62 Respiratory Rate 16 16 16 Blood Pressure 154/97 H 147/94 H 159/89 H Pulse Oximetry 100 100 100 09/09/18 14:00 09/09/18 14:53 09/09/18 15:00 Temperature Pulse Rate 71 64 71 Respiratory Rate 16 15 23 Blood Pressure 157/99 H 149/90 H Pulse Oximetry 100 100 100 09/09/18 15:01 09/09/18 16:00 09/09/18 16:12 Temperature Pulse Rate 68 75 70 Respiratory Rate 17 39 H 19 Blood Pressure 149/90 H 149/102 H 160/96 H Pulse Oximetry 100 100 100 09/09/18 17:00 09/09/18 18:00 09/09/18 18:01 Temperature Pulse Rate 67 66 67 Respiratory Rate 21 23 39 H Blood Pressure 141/82 H 148/83 H Pulse Oximetry 99 98 89 L 09/09/18 19:00 09/09/18 19:52 09/09/18 20:00 Temperature 99.2 F Pulse Rate 63 66 85 Respiratory Rate 20 21 26 H Blood Pressure 148/91 H 148/91 H Pulse Oximetry 100 100 100 09/09/18 22:00 09/09/18 22:21 09/10/18 00:00 Temperature 97.0 F L Pulse Rate 63 63 77 Respiratory Rate 18 Blood Pressure 126/79 Pulse Oximetry 97 09/10/18 00:10 09/10/18 04:35 Temperature 97.5 F L 97.3 F L Pulse Rate 63 63 Respiratory Rate 18 17 Blood Pressure 126/72 115/71 Pulse Oximetry 96 97 Intake & Output 09/09/18 09/10/18 09/10/18 18:59 06:59 18:59 Intake Total 862.5 / 862.5 770 / 770 Output Total 1900 / 1900 1500 / 1500 Balance -1037.5 / -1037.5 -730 / -730 Weight 69 kg Intake: IV 262.5 / 262.5 250 / 250 Vancomycin Inj 1,000 MG In NS 250 / 250 Inj 250 ML @ 250 mls/hr IV.SIG Q8H [facility] Rx#:[id number] Vancomycin Inj 1,250 MG In NS 262.5 / 262.5 Inj 250 ML @ 262.5 mls/hr IV. SIG Q12H [facility] Rx#:[id number] Oral 600 / 600 520 / 520 Output: Urine 1900 / 1900 1500 / 1500 Other: Date of Last Bowel Movement 09/07/18 # Bowel Movements 0 Narrative: awake on toilet some unsteady gait oriented - Urinary Catheter Management Indwelling Urethral Catheter Cath placed during this visit: yes, but has since been removed by the nurse Reason for continuing: Decision to DC catheter Insertion date: 09/06/18 Insertion time: 21:10 Removal date: 09/07/18 Removal time: 16:20 Objective Laboratory Results - last 24 hr 09/08/18 09/09/18 09/09/18 20:30 10:17 11:35 POC Glucose 86 Vitamin B12 TSH Free T4 Nasal Screen MRSA (PCR) Not detected Vancomycin Trough Phenobarbital 8.7 L 09/09/18 09/09/18 09/09/18 11:44 15:57 19:54 POC Glucose 89 Vitamin B12 360 TSH 2.170 Free T4 0.80 Nasal Screen MRSA (PCR) Vancomycin Trough 8.5 Phenobarbital 09/09/18 09/10/18 21:49 07:12 POC Glucose 107 85 Vitamin B12 TSH Free T4 Nasal Screen MRSA (PCR) Vancomycin Trough Phenobarbital Microbiology 09/06/18 22:10 Aerobic Blood Culture - Final Blood - Peripheral Staphylococcus coag negative Anaerobic Blood Culture - Preliminary No growth in 3 days 09/06/18 22:15 Aerobic Blood Culture - Final Blood - Peripheral Staphylococcus haemolyticus Anaerobic Blood Culture - Final Staphylococcus coag negative Review/Management - Review/Management Plan: imp no more sz mri brain and c spine and eeg and labs neg on keppra 1500 bid doing well when steady on feet could dc call neuro overweekend if gait does not improve
[2018-09-10] MEDS: Multivitamin/Minerals Therapeutic Tablet PO SCH (08:27)
[2018-09-10] MEDS: Folic Acid 1 MG Tablet PO SCH (08:27)
[2018-09-10] MEDS: levETIRAcetam 500 MG Tablet PO SCH ×2 (08:27→21:24)
[2018-09-10] MEDS ORDERED: Bisacodyl 10 MG Supp RECTAL PRN (11:20)
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
[2018-09-10 14:31] LABS: Anti-Nuclear Antibody Screen Neg (Neg)
[2018-09-10] MEDS ORDERED: Pharmacy Ordered Lab Info OTHER ONE (15:45)
[2018-09-10] MEDS: Lidocaine 5% Patch T-DERMAL SCH (16:41)
[2018-09-10] MEDS: Senna/Docusate Sodium 8.6/50 MG Tablet PO SCH (20:42)
[2018-09-11] MEDS: Vancomycin Inj 1,000 MG in Sodium Chlor 0.9% Inj 250 ML IV.SIG SCH ×3 (00:10→15:06)
[2018-09-11] MEDS: Chlorhexidine Gluconate 2% 1 Pack (2 Cloths) TOPICAL SCH (03:42)
[2018-09-11] MEDS: Sod Chloride 0.9% Inj 1,000 ML IV.CONT SCH ×5 (05:45→21:30)
[2018-09-11 06:54] LABS: Glomerular Filtration Rate Greater Than 89 mL/min (>89)
[2018-09-11] MEDS: Multivitamin/Minerals Therapeutic Tablet PO SCH (08:42)
[2018-09-11] MEDS: levETIRAcetam 500 MG Tablet PO SCH ×2 (08:42→20:27)
[2018-09-11] MEDS: Folic Acid 1 MG Tablet PO SCH (08:43)
[2018-09-11] MEDS: Lidocaine 5% Patch T-DERMAL SCH (08:43)
[2018-09-11] MEDS: Senna/Docusate Sodium 8.6/50 MG Tablet PO SCH ×2 (08:43→20:55)
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
[2018-09-11] MEDS: LORazepam 1 MG Tablet PO PRN (14:40)
[2018-09-11] MEDS: Ketorolac Inj 30 MG/ML (IVP) Vial IV.PUSH PRN ×2 (15:03→20:28)
[2018-09-11] MEDS ORDERED: Pharmacy Ordered Lab Info OTHER ONE (15:45)
[2018-09-12] MEDS: Ketorolac Inj 30 MG/ML (IVP) Vial IV.PUSH PRN ×4 (02:01→20:41)
[2018-09-12] MEDS: Sod Chloride 0.9% Inj 1,000 ML IV.CONT SCH ×2 (05:18→18:10)
[2018-09-12] MEDS: Senna/Docusate Sodium 8.6/50 MG Tablet PO SCH ×2 (08:22→20:41)
[2018-09-12] MEDS: levETIRAcetam 500 MG Tablet PO SCH ×2 (08:22→20:40)
[2018-09-12] MEDS: Lidocaine 5% Patch T-DERMAL SCH (08:23)
[2018-09-12] MEDS: Multivitamin/Minerals Therapeutic Tablet PO SCH (08:35)
[2018-09-12] MEDS: Folic Acid 1 MG Tablet PO SCH (08:35)
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
[2018-09-12] MEDS: Vancomycin Inj 1,000 MG in Sodium Chlor 0.9% Inj 250 ML IV.SIG SCH ×2 (11:43→22:38)
[2018-09-13] MEDS: Ketorolac Inj 30 MG/ML (IVP) Vial IV.PUSH PRN ×3 (02:32→18:11)
[2018-09-13] MEDS: Sod Chloride 0.9% Inj 1,000 ML IV.CONT SCH ×2 (04:15→16:10)
[2018-09-13 06:48] LABS: Glomerular Filtration Rate Greater Than 89 mL/min (>89)
--- NOTE | 2018-09-13 08:08 | P.PNNEU ---
Subjective Active Medications: Active Medications Hydrocodone Bitart/Acetaminophen ([place] 5/325) 1 tab PO Q8H PRN PRN Reason: Pain 6-10 Last Admin: 09/13/18 02:32 Dose: 1 tab Al Hydroxide/Mg Hydroxide (Milk Of Magnesia Liq) 30 ml PO Q12H PRN PRN Reason: Mild Constipation Bisacodyl (Dulcolax Supp) 10 mg RECTAL DAILY PRN PRN Reason: SEVERE CONSITIPATION Chlordiazepoxide (Librium) 10 mg PO Q8H PRN PRN Reason: WITHDRAWAL Last Admin: 09/12/18 08:22 Dose: 10 mg Flumazenil (Romazecon Inj) 0.2 mg IV.PUSH Q1M PRN PRN Reason: OVERSEDATION Haloperidol Lactate (Haldol Inj) 1 mg IV.PUSH Q15M PRN PRN Reason: for severe agitation Sodium Chloride (Ns Inj) 1,000 mls @ 84 mls/hr IV.CONT .[id number] [facility] Last Admin: 09/13/18 04:15 Dose: 84 mls/hr Vancomycin HCl 1,000 mg/ (Sodium Chloride) 250 mls @ 250 mls/hr IV.SIG Q12H [facility] Last Infusion: 09/12/18 23:39 Dose: Infused Ketorolac Tromethamine (Toradol Inj) 30 mg IV.PUSH Q6H PRN PRN Reason: Pain 1-5 Stop: 09/16/18 14:54 Last Admin: 09/13/18 02:32 Dose: 30 mg Lactulose (Lactulose Liq) 30 ml PO DAILY PRN PRN Reason: SEVERE CONSITIPATION Levetiracetam (Keppra) 1,500 mg PO BID [facility] Last Admin: 09/12/18 20:40 Dose: 1,500 mg Lidocaine HCl (Lidoderm 5% Patch.12 Hr) 1 patch T-DERMAL DAILY [facility] Last Admin: 09/12/18 08:23 Dose: 1 patch Lorazepam (Ativan) 1 mg PO Q4H PRN PRN Reason: for CIWA 8-10 Last Admin: 09/11/18 14:40 Dose: 1 mg Lorazepam (Ativan) 2 mg PO Q2H PRN PRN Reason: for CIWA 11-14 Last Admin: 09/09/18 21:45 Dose: 2 mg Lorazepam (Ativan Inj) 2 mg IV.PUSH Q2H PRN PRN Reason: for CIWA 11-14 Last Admin: 09/07/18 21:35 Dose: 2 mg Lorazepam (Ativan Inj) 2 mg IV.PUSH Q1H PRN PRN Reason: for CIWA 15-20 Last Admin: 09/07/18 09:32 Dose: 2 mg Lorazepam (Ativan Inj) 2 mg IV.PUSH Q15M PRN PRN Reason: for CIWA > 20 Last Admin: 09/11/18 10:59 Dose: 2 mg Lorazepam (Ativan Inj) 1 mg IV.PUSH Q4H PRN PRN Reason: for CIWA 8-10 Miscellaneous Information ([facility] Ordered [facility] Info) 0 each OTHER ONCE ONE Stop: 09/13/18 09:46 Neomycin/Polymyxin/Bacitracin (Neosporin Oint) 1 applicatio TOPICAL BID [facility] Last Admin: 09/12/18 21:00 Dose: 1 applicatio Nicotine (Habitrol 21 Mg Patch.24 Hr) 1 patch T-DERMAL DAILY [facility] Last Admin: 09/12/18 08:22 Dose: 1 patch Ondansetron HCl (Zofran Inj) 4 mg IV.PUSH Q6H PRN PRN Reason: NAUSEA OR VOMITING Last Admin: 09/07/18 16:06 Dose: 4 mg Patch Removal (Remove Old Patch) 1 each T-DERMAL HS [facility] Last Admin: 09/12/18 20:44 Dose: 1 each Pharmacy Profile Note (Vancomycin Consult Pharmacy) 1 each OTHER UNSCH PRN PRN Reason: Pharmacy to dose Phenobarbital (Phenobarbital) 97.2 mg PO DAILY [facility] Last Admin: 09/12/18 08:22 Dose: 97.2 mg Phenobarbital (Phenobarbital) 32.4 mg PO HS [facility] Last Admin: 09/12/18 20:40 Dose: 32.4 mg Senna/Docusate Sodium (Bailey-Colace) 1 tab PO BID [facility] Last Admin: 09/12/18 20:41 Dose: 1 tab Sennosides (Senokot) 17.2 mg PO Q12H PRN PRN Reason: Moderate Constipation Thiamine HCl (Vitamin B1) 100 mg PO DAILY [facility] Last Admin: 09/12/18 08:22 Dose: 100 mg Allergies/Adverse Reactions: Allergies Allergy/AdvReac Type Severity Reaction Status Date / Time azithromycin Allergy Rash Verified 09/12/18 04:41 cephalexin [From Keflex] Allergy Respiratory Verified 09/12/18 04:41 Failure Penicillins Allergy Respiratory Verified 09/12/18 04:41 Failure Physical Exam Vital signs: Vital Signs 09/12/18 12:00 09/12/18 15:10 09/12/18 16:00 Temperature 98.3 F 98.4 F Pulse Rate 60 66 Respiratory Rate 18 16 18 Blood Pressure 155/80 H 148/92 H Pulse Oximetry 100 99 09/12/18 19:53 09/12/18 20:00 09/12/18 21:11 Temperature 97.7 F Pulse Rate 61 57 L Respiratory Rate 19 18 Blood Pressure 159/86 H Pulse Oximetry 99 99 09/12/18 22:58 09/13/18 00:19 09/13/18 02:36 Temperature 97.4 F L 97.5 F L Pulse Rate 53 L 54 L 58 L Respiratory Rate 18 18 Blood Pressure 120/75 118/74 Pulse Oximetry 98 98 09/13/18 03:02 09/13/18 04:00 09/13/18 04:50 Temperature Pulse Rate 57 L Respiratory Rate 18 16 Blood Pressure Pulse Oximetry Intake & Output 09/12/18 09/13/18 09/13/18 18:59 06:59 18:59 Intake Total 1250 / 1250 730 / 730 Balance 1250 / 1250 730 / 730 Weight 70.1 kg Intake: IV 1250 / 1250 250 / 250 NS Inj 1,000 ML @ 84 mls/hr IV. 1000 / 1000 CONT .[id number] [facility] Rx#:[id number] Vancomycin Inj 1,000 MG In NS 250 / 250 250 / 250 Inj 250 ML @ 250 mls/hr IV.SIG Q12H [facility] Rx#:[id number] Oral 480 / 480 Other: # Voids 4 3 Date of Last Bowel Movement 09/12/18 09/13/18 # Bowel Movements 1 Narrative: awake alert nad - Urinary Catheter Management Indwelling Urethral Catheter Cath placed during this visit: yes, but has since been removed by the nurse Reason for continuing: Decision to DC catheter Insertion date: 09/06/18 Insertion time: 21:10 Removal date: 09/07/18 Removal time: 16:20 Objective Laboratory Results - last 24 hr 09/12/18 09/13/18 06:36 05:49 Creatinine 0.80 Estimated GFR Greater than 89 Random Vancomycin 9.4 Microbiology 09/09/18 14:29 Aerobic Blood Culture - Preliminary Blood - Peripheral No growth in 3 days Anaerobic Blood Culture - Final QNS - See aerobic report. 09/09/18 14:25 Aerobic Blood Culture - Preliminary Blood - Peripheral No growth in 3 days Anaerobic Blood Culture - Preliminary No growth in 3 days Review/Management - Review/Management Plan: imp no more sz mri brain and c spine and eeg and labs neg on keppra 1500 bid doing well when steady on feet could dc call neuro overweekend if gait does not improve --------- 09/13/18 a gtc sat so inc pbarb to 93 mg bid and may add tegretol if another one keppra at 1500 bid not working well
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
[2018-09-13] MEDS ORDERED: Pharmacy Ordered Lab Info OTHER ONE (09:45)
[2018-09-13] MEDS: levETIRAcetam 500 MG Tablet PO SCH ×2 (10:13→20:40)
[2018-09-13] MEDS: Senna/Docusate Sodium 8.6/50 MG Tablet PO SCH (10:17)
[2018-09-13] MEDS: Lidocaine 5% Patch T-DERMAL SCH (10:17)
[2018-09-13 11:34] LABS: Vancomycin,Trough 7.3 mcg/mL (5.0-10.0)
[2018-09-13] MEDS: Vancomycin Inj 1,000 MG in Sodium Chlor 0.9% Inj 250 ML IV.SIG SCH (11:39)
[2018-09-13] MEDS ORDERED: Vancomycin Inj 1,250 MG in Sodium Chlor 0.9% Inj 250 ML IV.SIG SCH (21:00)
[2018-09-14] MEDS: Ketorolac Inj 30 MG/ML (IVP) Vial IV.PUSH PRN ×3 (02:27→18:22)
[2018-09-14] MEDS: Senna/Docusate Sodium 8.6/50 MG Tablet PO SCH ×3 (05:29→20:20)
[2018-09-14] MEDS: Sod Chloride 0.9% Inj 1,000 ML IV.CONT SCH ×2 (05:30→18:21)
[2018-09-14 09:12] LABS: Baso # (Auto) 0.1 th/mm3 (0.0-0.2); Baso % (Auto) 1.4 % (0.0-2.0); Hematocrit 37.1 % (39.0-51.0); Hemoglobin 13.1 gm/dL (13.0-17.0); Lymph # (Auto) 1.7 th/mm3 (1.0-4.8); Lymph % (Auto) 34.4 % (9.0-44.0); Mean Corpuscular HGB Conc 35.3 % (32.0-36.0); Mean Corpuscular Hemoglobin 33.1 pg (27.0-34.0); Mean Corpuscular Volume 93.8 fL (80.0-100.0); Mono # (Auto) 0.5 th/mm3 (0.0-0.9); Mono % (Auto) 10.1 % (0.0-8.0); Neut # (Auto) 2.7 th/mm3 (1.8-7.7); Neut % (Auto) 54.1 % (16.0-70.0); Platelet Count 212 th/mm3 (150-450); Red Blood Count 3.95 mil/mm3 (4.50-5.90); Red Cell Distribution Width 15.2 % (11.6-17.2)
[2018-09-14 09:44] LABS: Alanine Aminotransferase 21 U/L (12-78); Albumin 3.3 g/dL (3.4-5.0); Anion Gap 6 meq/L (5-15); Aspartate Aminotransferase 18 U/L (15-37); Blood Urea Nitrogen 11 mg/dL (7-18); Calcium 8.6 mg/dL (8.5-10.1); Carbon Dioxide 26.4 meq/L (21.0-32.0); Chloride 104 meq/L (98-107); Glomerular Filtration Rate Greater Than 89 mL/min (>89); Glucose,Random 117 mg/dL (74-106); Potassium 3.9 meq/L (3.5-5.1); Sodium 136 meq/L (136-145)
[2018-09-14 09:47] LABS: Alkaline Phosphatase 97 U/L (45-117); Total Protein 7.1 g/dL (6.4-8.2)
[2018-09-14] MEDS: Lidocaine 5% Patch T-DERMAL SCH (10:28)
[2018-09-14] MEDS: levETIRAcetam 500 MG Tablet PO SCH ×2 (10:28→20:19)
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
[2018-09-15] MEDS: Ketorolac Inj 30 MG/ML (IVP) Vial IV.PUSH PRN ×2 (02:20→10:32)
[2018-09-15] MEDS: Sod Chloride 0.9% Inj 1,000 ML IV.CONT SCH ×2 (04:37→19:08)
[2018-09-15 05:16] LABS: Glomerular Filtration Rate Greater Than 89 mL/min (>89)
[2018-09-15 08:12] LABS: Baso # (Auto) 0.1 th/mm3 (0.0-0.2); Baso % (Auto) 1.4 % (0.0-2.0); Hematocrit 40.2 % (39.0-51.0); Hemoglobin 13.6 gm/dL (13.0-17.0); Lymph # (Auto) 1.8 th/mm3 (1.0-4.8); Lymph % (Auto) 39.3 % (9.0-44.0); Mean Corpuscular HGB Conc 33.9 % (32.0-36.0); Mean Corpuscular Hemoglobin 32.9 pg (27.0-34.0); Mean Corpuscular Volume 96.9 fL (80.0-100.0); Mean Platelet Volume 8.3 fL (7.0-11.0); Mono # (Auto) 0.5 th/mm3 (0.0-0.9); Mono % (Auto) 11.6 % (0.0-8.0); Neut # (Auto) 2.1 th/mm3 (1.8-7.7); Neut % (Auto) 47.7 % (16.0-70.0); Platelet Count 239 th/mm3 (150-450); Red Blood Count 4.15 mil/mm3 (4.50-5.90); Red Cell Distribution Width 15.3 % (11.6-17.2); White Blood Count 4.5 th/mm3 (4.0-11.0)
[2018-09-15 08:29] LABS: Alanine Aminotransferase 21 U/L (12-78); Albumin 3.5 g/dL (3.4-5.0); Anion Gap 7 meq/L (5-15); Aspartate Aminotransferase 16 U/L (15-37); Blood Urea Nitrogen 12 mg/dL (7-18); Calcium 8.6 mg/dL (8.5-10.1); Carbon Dioxide 26.1 meq/L (21.0-32.0); Chloride 105 meq/L (98-107); Glomerular Filtration Rate Greater Than 89 mL/min (>89); Glucose,Random 83 mg/dL (74-106); Potassium 4.1 meq/L (3.5-5.1); Sodium 138 meq/L (136-145)
[2018-09-15 08:33] LABS: Alkaline Phosphatase 95 U/L (45-117); Total Protein 7.3 g/dL (6.4-8.2)
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
[2018-09-15] MEDS ORDERED: Pharmacy Ordered Lab Info OTHER ONE (08:45)
--- NOTE | 2018-09-15 09:32 | P.PNNEU ---
Subjective Active Medications: Active Medications Hydrocodone Bitart/Acetaminophen ([place] 5/325) 1 tab PO Q8H PRN PRN Reason: Pain 6-10 Last Admin: 09/15/18 02:20 Dose: 1 tab Al Hydroxide/Mg Hydroxide (Milk Of Magnesia Liq) 30 ml PO Q12H PRN PRN Reason: Mild Constipation Bisacodyl (Dulcolax Supp) 10 mg RECTAL DAILY PRN PRN Reason: SEVERE CONSITIPATION Chlordiazepoxide (Librium) 10 mg PO Q8H PRN PRN Reason: WITHDRAWAL Last Admin: 09/14/18 20:20 Dose: 10 mg Flumazenil (Romazecon Inj) 0.2 mg IV.PUSH Q1M PRN PRN Reason: OVERSEDATION Haloperidol Lactate (Haldol Inj) 1 mg IV.PUSH Q15M PRN PRN Reason: for severe agitation Sodium Chloride (Ns Inj) 1,000 mls @ 84 mls/hr IV.CONT .[id number] [facility] Last Admin: 09/15/18 04:37 Dose: Not Given Ketorolac Tromethamine (Toradol Inj) 30 mg IV.PUSH Q6H PRN PRN Reason: Pain 1-5 Stop: 09/16/18 14:54 Last Admin: 09/15/18 02:20 Dose: 30 mg Lactulose (Lactulose Liq) 30 ml PO DAILY PRN PRN Reason: SEVERE CONSITIPATION Levetiracetam (Keppra) 1,500 mg PO BID [facility] Last Admin: 09/14/18 20:19 Dose: 1,500 mg Lidocaine HCl (Lidoderm 5% Patch.12 Hr) 1 patch T-DERMAL DAILY [facility] Last Admin: 09/14/18 10:28 Dose: Not Given Lorazepam (Ativan) 1 mg PO Q4H PRN PRN Reason: for CIWA 8-10 Last Admin: 09/11/18 14:40 Dose: 1 mg Lorazepam (Ativan) 2 mg PO Q2H PRN PRN Reason: for CIWA 11-14 Last Admin: 09/09/18 21:45 Dose: 2 mg Lorazepam (Ativan Inj) 2 mg IV.PUSH Q2H PRN PRN Reason: for CIWA 11-14 Last Admin: 09/07/18 21:35 Dose: 2 mg Lorazepam (Ativan Inj) 2 mg IV.PUSH Q1H PRN PRN Reason: for CIWA 15-20 Last Admin: 09/15/18 01:43 Dose: 2 mg Lorazepam (Ativan Inj) 2 mg IV.PUSH Q15M PRN PRN Reason: for CIWA > 20 Last Admin: 09/11/18 10:59 Dose: 2 mg Lorazepam (Ativan Inj) 1 mg IV.PUSH Q4H PRN PRN Reason: for CIWA 8-10 Lorazepam (Ativan Inj) 2 mg IV.PUSH Q2H PRN PRN Reason: SEIZURES Neomycin/Polymyxin/Bacitracin (Neosporin Oint) 1 applicatio TOPICAL BID [facility] Last Admin: 09/14/18 20:21 Dose: 1 applicatio Nicotine (Habitrol 21 Mg Patch.24 Hr) 1 patch T-DERMAL DAILY [facility] Last Admin: 09/14/18 10:27 Dose: Not Given Ondansetron HCl (Zofran Inj) 4 mg IV.PUSH Q6H PRN PRN Reason: NAUSEA OR VOMITING Last Admin: 09/07/18 16:06 Dose: 4 mg Patch Removal (Remove Old Patch) 1 each T-DERMAL HS [facility] Last Admin: 09/14/18 20:24 Dose: Not Given Phenobarbital (Phenobarbital) 97.2 mg PO BID [facility] Last Admin: 09/14/18 20:20 Dose: 97.2 mg Senna/Docusate Sodium (Bailey-Colace) 1 tab PO BID [facility] Last Admin: 09/14/18 20:20 Dose: Not Given Sennosides (Senokot) 17.2 mg PO Q12H PRN PRN Reason: Moderate Constipation Thiamine HCl (Vitamin B1) 100 mg PO DAILY [facility] Last Admin: 09/14/18 10:28 Dose: 100 mg Allergies/Adverse Reactions: Allergies Allergy/AdvReac Type Severity Reaction Status Date / Time azithromycin Allergy Rash Verified 09/12/18 04:41 cephalexin [From Keflex] Allergy Respiratory Verified 09/12/18 04:41 Failure Penicillins Allergy Respiratory Verified 09/12/18 04:41 Failure Physical Exam Vital signs: Vital Signs 09/14/18 12:00 09/14/18 16:00 09/14/18 19:25 Temperature 97.8 F 97.9 F 97.7 F Pulse Rate 52 L 54 L 54 L Respiratory Rate 16 16 18 Blood Pressure 107/55 L 137/62 145/85 H Pulse Oximetry 97 99 98 09/14/18 23:20 09/15/18 00:00 09/15/18 03:42 Temperature 96.9 F L 97.9 F Pulse Rate 56 L 66 Respiratory Rate 18 17 18 Blood Pressure 114/64 162/88 H Pulse Oximetry 98 98 09/15/18 06:00 Temperature Pulse Rate Respiratory Rate 17 Blood Pressure Pulse Oximetry Intake & Output 09/14/18 09/15/18 09/15/18 18:59 06:59 18:59 Intake Total 480 / 480 Balance 480 / 480 Weight 67.3 kg Intake: Oral 480 / 480 Other: # Voids 3 Date of Last Bowel Movement 09/14/18 09/14/18 # Bowel Movements 1 1 Narrative: awake alert in chair enjoying coffee nad nl speech - Urinary Catheter Management Indwelling Urethral Catheter Cath placed during this visit: yes, but has since been removed by the nurse Reason for continuing: Decision to DC catheter Insertion date: 09/06/18 Insertion time: 21:10 Removal date: 09/07/18 Removal time: 16:20 Objective Laboratory Results - last 24 hr 09/14/18 09/15/18 09/15/18 08:49 04:04 07:59 WBC 4.5 RBC 4.15 L Hgb 13.6 Hct 40.2 MCV 96.9 MCH 32.9 MCHC 33.9 RDW 15.3 Plt Count 239 MPV 8.3 Neut % (Auto) 47.7 Lymph % (Auto) 39.3 [place] % (Auto) 11.6 H Eos % (Auto) 0.0 Baso % (Auto) 1.4 Neut # (Auto) 2.1 Lymph # (Auto) 1.8 [place] # (Auto) 0.5 Eos # (Auto) 0.0 Baso # (Auto) 0.1 WBC Differential . Differential Comment Auto diff final Sodium 136 Potassium 3.9 Chloride 104 Carbon Dioxide 26.4 Anion Gap 6 BUN 11 Creatinine 0.84 0.77 Estimated GFR Greater than 89 Greater than 89 Random Glucose 117 H Calcium 8.6 Total Bilirubin 0.3 AST 18 ALT 21 Alkaline Phosphatase 97 Total Protein 7.1 Albumin 3.3 L Phenobarbital 09/15/18 07:59 WBC RBC Hgb Hct MCV MCH MCHC RDW Plt Count MPV Neut % (Auto) Lymph % (Auto) [place] % (Auto) Eos % (Auto) Baso % (Auto) Neut # (Auto) Lymph # (Auto) [place] # (Auto) Eos # (Auto) Baso # (Auto) WBC Differential Differential Comment Sodium 138 Potassium 4.1 Chloride 105 Carbon Dioxide 26.1 Anion Gap 7 BUN 12 Creatinine 0.84 Estimated GFR Greater than 89 Random Glucose 83 Calcium 8.6 Total Bilirubin 0.2 AST 16 ALT 21 Alkaline Phosphatase 95 Total Protein 7.3 Albumin 3.5 Phenobarbital 12.5 L Microbiology 09/09/18 14:29 Aerobic Blood Culture - Final Blood - Peripheral No growth in 5 days Anaerobic Blood Culture - Final QNS - See aerobic report. 09/09/18 14:25 Aerobic Blood Culture - Final Blood - Peripheral No growth in 5 days Anaerobic Blood Culture - Final No growth in 5 days Review/Management - Review/Management Plan: imp no more sz mri brain and c spine and eeg and labs neg on keppra 1500 bid doing well when steady on feet could dc call neuro overweekend if gait does not improve --------- 09/13/18 a gtc sat so inc pbarb to 93 mg bid and may add tegretol if another one keppra at 1500 bid not working well 09/15/18 i reviewed his eeg on this admission and he had pseudosz during it with no eeg sz activity and shaking and staring during the spell i believe he has pseudosz and ok by me to dc on curent med regiment i dw him the dx he had 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 i dw him the dx
[2018-09-15] MEDS: levETIRAcetam 500 MG Tablet PO SCH (10:32)
[2018-09-15] MEDS: Lidocaine 5% Patch T-DERMAL SCH (10:33)
[2018-09-15] MEDS: Senna/Docusate Sodium 8.6/50 MG Tablet PO SCH (10:33)
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
== END 2018-09-15 18:19 | disposition home or self-care (01) ==
LOC: NEPE 21:00 → NEDA 21:00 → EDBD 09-07 05:05 → N06 09-07 15:34 → HIMC 09-08 20:15 → N06 09-09 21:42
PROVIDERS: ADMIT Internal Medicine; ATTEND Internal Medicine
DX: J98.11 Atelectasis; F19.10 Other psychoactive substance abuse, uncomplicated; Z88.1 Allergy status to other antibiotic agents; L03.011 Cellulitis of right finger; M50.322 Other cervical disc degeneration at C5-C6 level; Z59.0 Homelessness; Z86.14 Personal history of Methicillin resistant Staphylococcus aureus infection; B95.7 Other staphylococcus as the cause of diseases classified elsewhere; R26.81 Unsteadiness on feet; Z92.3 Personal history of irradiation; S22.42XA Multiple fractures of ribs, left side, initial encounter for closed fracture; Y90.8 Blood alcohol level of 240 mg/100 ml or more; M48.02 Spinal stenosis, cervical region; F44.5 Conversion disorder with seizures or convulsions; Z85.038 Personal history of other malignant neoplasm of large intestine; K59.00 Constipation, unspecified; R78.81 Bacteremia; V03.10XA Pedestrian on foot injured in collision with car, pick-up truck or van in traffic accident, initial encounter; Y92.410 Unspecified street and highway as the place of occurrence of the external cause; Z88.0 Allergy status to penicillin; J96.90 Respiratory failure, unspecified, unspecified whether with hypoxia or hypercapnia; Z80.0 Family history of malignant neoplasm of digestive organs; F17.210 Nicotine dependence, cigarettes, uncomplicated; Z92.21 Personal history of antineoplastic chemotherapy; F10.239 Alcohol dependence with withdrawal, unspecified